=== PATIENT | male | born 1985 | race Two or more races ===

== ENCOUNTER 2023-03-11 14:41 | Emergency (ER) | payer OTHER ==
[~2023-03-11] VITALS: Ht 189.2 cm; Wt 92.5 kg
== END 2023-03-11 18:06 | disposition home or self-care (01) ==
LOC: ER 14:41
DX: K64.4 Residual hemorrhoidal skin tags (principal)

== ENCOUNTER 2023-11-29 21:16 | Emergency (ER) | payer OTHER ==
[~2023-11-29] VITALS: Ht 188 cm; Wt 95.3 kg
== END 2023-11-30 00:37 ==
LOC: ER 21:17
DX: R53.81 Other malaise (principal); T17.320A Food in larynx causing asphyxiation, initial encounter